=== PATIENT | female | born 1990 | race Caucasian/White ===

== ENCOUNTER → 2021-11-22 | Outpatient (CLI) | payer OTHER ==
[~2021-11-22] MED LIST: FLUT15.819; LABE200T32 PO; LORA-243 PO; UNIS25TA3 PO; allergy shots
== END ==
LOC: M EKG 06:15
PROVIDERS: ATTEND Anesthesiology
DX: Z01.810 Encounter for preprocedural cardiovascular examination (principal); I49.9 Cardiac arrhythmia, unspecified

== ENCOUNTER 2021-11-25 10:10 | Day surgery (SDC) | payer OTHER ==
[~2021-11-25] VITALS: Ht 167.6 cm; Wt 61.9 kg
[~2021-11-25 10:10] MED LIST changes: +LIDOCAINE 1% MDV 20ML VIAL SQ PRN; +LR 1,000 ML IV ONE
[2021-11-25] MEDS ORDERED: fentaNYL 100 MCG/2 ML INJECTION (J3010) As Ordered ONE (12:41)
[2021-11-25] MEDS ORDERED: MIDAZOLAM INJ 2MG/2ML VIAL (J2250 PER 1MG) As Ordered ONE (12:41)
[2021-11-25] MEDS ORDERED: LIDOCAINE 2% 100MG/5ML SDV (FOR ANES.) As Ordered ONE (12:41)
[2021-11-25] MEDS ORDERED: ROCURONIUM BROMIDE 50 MG/5 ML VIAL As Ordered ONE (12:42)
[2021-11-25] MEDS ORDERED: dexameTHASONE 4 MG/ML 1ML VIAL (J1100 PER 1MG) As Ordered ONE (12:42)
[2021-11-25] MEDS ORDERED: SUGAMMADEX SODIUM 500 MG/5 ML VIAL (BRIDION) As Ordered ONE (12:42)
[2021-11-25] MEDS ORDERED: ONDANSETRON 4MG/2ML VIAL As Ordered ONE (12:42)
[2021-11-25] MEDS ORDERED: propofoL 200 MG/20 ML VIAL As Ordered ONE (12:43)
[2021-11-25] MEDS ORDERED: EPINEPHrine 1MG/ML INJ 30ML MD-VIAL As Ordered ONE (13:06)
[2021-11-25] MEDS ORDERED: LIDOCAINE W/EPINEPHRINE 1% 20ML VIAL As Ordered ONE (13:06)
[2021-11-25] MEDS ORDERED: METHYLENE BLUE 0.5% (5MG/ML) 10 ML AMP (PROVAYBLUE) As Ordered ONE (13:08)
[2021-11-25] MEDS ORDERED: ACETAMINOPHEN 1000MG 100ML IV BTL (OFIRMEV) (J0131 PER 10MG) As Ordered ONE (13:34)
[2021-11-25] MEDS ORDERED: PHENYLephrine 500MCG 5ML (100MCG/ML) SYRINGE As Ordered ONE ×2 (13:43→15:02)
[2021-11-25] MEDS ORDERED: fentaNYL 100 MCG/2 ML INJECTION (J3010) IV PRN (15:30)
[2021-11-25] MEDS ORDERED: oxyCODONE 5MG TAB PO PRN (15:30)
[2021-11-25] MEDS ORDERED: LR 1,000 ML IV SCH (15:30)
[2021-11-25 15:45] VITALS: BP 136/81
== END 2021-11-25 16:14 | disposition home or self-care (01) ==
LOC: M SDC 10:10
PROVIDERS: ATTEND Otolaryngology
DX: Q89.2 Congenital malformations of other endocrine glands (principal); I10 Essential (primary) hypertension; R06.83 Snoring; Z79.899 Other long term (current) drug therapy
CPT/HCPCS: 60281; 81025; 88305; J0131; J1100; J2250; J2370; J2405; J3010

== ENCOUNTER → 2022-11-13 | Outpatient (REF) | payer OTHER ==
[~2022-11-13] MED LIST changes: -LABE200T32 PO; +LABE200T5 PO; -LIDOCAINE 1% MDV 20ML VIAL SQ PRN; -LR 1,000 ML IV ONE
== END ==
LOC: M LAB REF 18:53
PROVIDERS: ATTEND Physician Assistant
DX: L02.11 Cutaneous abscess of neck (principal)

== ENCOUNTER 2024-03-05 08:41 | Emergency (ER) | payer OTHER ==
[~2024-03-05] VITALS: Ht 160 cm; Wt 62.4 kg
[2024-03-05] MEDS: PROPARACAINE 0.5% OPHTH SOL 15ML OS ONE (10:25)
[2024-03-05] MEDS: FLUORESCEIN OPHTH 1MG STRIP OS ONE (10:25)
[2024-03-05] MEDS: ERYTHROMYCIN OPHTH OINT OS ONE (10:42)
[2024-03-05] MEDS ORDERED: GENT0.3S34 OS (10:44)
[2024-03-05 10:47] VITALS: BP 156/75; TEMP 99.1; O2SAT 100
== END 2024-03-05 10:50 | disposition home or self-care (01) ==
LOC: M ED 08:41
DX: S05.02XA Injury of conjunctiva and corneal abrasion without foreign body, left eye, initial encounter (principal); Y92.9 Unspecified place or not applicable; Y93.9 Activity, unspecified; Y99.9 Unspecified external cause status; Z79.899 Other long term (current) drug therapy

== ENCOUNTER 2024-08-14 21:50 | Emergency (ER) | payer OTHER ==
[~2024-08-14] VITALS: Ht 160 cm; Wt 65.6 kg
[~2024-08-14 21:50] MED LIST changes: +GENT0.3S34 OS
[2024-08-14 22:45] LABS: HEMATOCRIT 34.5 % (36.0-47.0); HEMOGLOBIN 11.7 g/dl (12.0-15.5); MEAN CORPUSCULAR HEMOGLOBIN 27.5 pg (27.0-33.0); MEAN CORPUSCULAR HGB CONC 33.9 g/dl (32.0-36.5); MEAN CORPUSCULAR VOLUME 81.2 fl (80.0-96.0); PLATELET COUNT, AUTOMATED 197 10^3/uL (150-450); RED BLOOD COUNT 4.25 10^6/uL (4.00-5.40); WHITE BLOOD COUNT 6.6 10^3/uL (4.0-10.0)
[2024-08-14 23:28] LABS: BLOOD UREA NITROGEN 7 MG/DL (9-23); CALCIUM LEVEL 8.2 MG/DL (8.5-10.1); CARBON DIOXIDE LEVEL 24 MMOL/L (20-31); CHLORIDE LEVEL 106 MMOL/L (98-107); CREATININE FOR GFR 0.59 MG/DL (0.55-1.30); GLOMERULAR FILTRATION RATE > 60.0 (>60); GLUCOSE, FASTING 161 MG/DL (60-100); POTASSIUM SERUM 3.5 MMOL/L (3.5-5.1); SODIUM LEVEL 137 MMOL/L (136-145)
[2024-08-15 00:15] LABS: PROCALCITONIN 0.23 ng/ml
[2024-08-15] MEDS: AZITHROMYCIN 250MG TABLET PO ONE (00:39)
[2024-08-15] MEDS: ACETAMINOPHEN 500 MG TAB PO ONE (00:39)
[2024-08-15] MEDS: IBUPROFEN 800 MG TAB PO ONE (00:40)
[2024-08-15] MEDS ORDERED: AZIT-12 PO (00:54)
[2024-08-15 01:07] VITALS: BP 131/75; TEMP 98.6; O2SAT 95
== END 2024-08-15 01:08 | disposition home or self-care (01) ==
LOC: M ED 21:50
DX: U07.1 COVID-19 (principal); J18.1 Lobar pneumonia, unspecified organism; I10 Essential (primary) hypertension; Z79.2 Long term (current) use of antibiotics; Z79.899 Other long term (current) drug therapy